=== PATIENT | female | born 1950 | race Caucasian/White ===

== ENCOUNTER 2022-06-13 13:50 | Emergency (ER) | payer MEDICARE, OTHER, SELFPAY ==
[2022-06-13 13:53] VITALS: BP 142/83; PULSE 96; RESP 18; TEMP 36.3; O2SAT 96; BMI 28.5
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
--- NOTE | 2022-06-13 14:59 | ED.RN ---
NO OLD EKG.
[2022-06-13] MEDS: fentaNYL 100 MCG/2 ML Ampul 50 MCG IM (15:02)
[2022-06-13] MEDS: Ondansetron ODT 4 MG Tablet PO (15:02)
== END 2022-06-13 16:19 | disposition home or self-care (01) ==
PROVIDERS: Emergency Provider Emergency Medicine; PCP Internal Medicine; Visit Provider Emergency Medicine
DX: R07.89 Other chest pain (principal); E04.1 Nontoxic single thyroid nodule; R51.9 Headache, unspecified; R06.02 Shortness of breath; Z79.82 Long term (current) use of aspirin; Z79.899 Other long term (current) drug therapy
CPT/HCPCS: 70450; 71250; 72125; 93005; 99284